=== PATIENT | female | born 1990 | race Caucasian/White ===

== ENCOUNTER 2018-09-12 13:29 | Emergency (ER) | payer SELFPAY ==
--- NOTE | 2018-09-12 16:21 | ER Document Report ---
HPI - HPI Time Seen by Provider: 09/12/18 16:04 Pain Level: Denies Notes: Patient is a 28-year-old female presented to the emergency department chief complaint of possible staph infection. Patient reports she is just got out of penitentiary and she has a few scattered red bumps to her chest, arms and face. Patient reports every time she gets out of correction or penitentiary she gets this infection. Patient reports she has taken Bactrim in the past which has cleared the infection without difficulty. Patient denies any nausea, vomiting, diarrhea or fevers. - REPRODUCTIVE Reproductive: DENIES: : Past Medical History - General Information source: Patient - Social History Smoking Status: Current Every Day Smoker Chew tobacco use (# tins/day): No Frequency of alcohol use: None Drug Abuse: Heroin, Methamphetamine Family History: Reviewed & Not Pertinent Patient has suicidal ideation: No Patient has homicidal ideation: No Neurological Medical History: Reports: Hx Migraine Renal/ Medical History: Denies: Hx Peritoneal Dialysis Vertical Provider Document - CONSTITUTIONAL Notes: PHYSICAL EXAMINATION: GENERAL: Well-appearing, well-nourished and in no acute distress. HEAD: Atraumatic, normocephalic. EYES: Pupils equal round extraocular movements intact, conjunctiva are normal. ENT: Nares patent NECK: Normal range of motion LUNGS: No respiratory distress Musculoskeletal: Normal range of motion NEUROLOGICAL: Normal speech, normal gait. PSYCH: Normal mood, normal affect. SKIN: Scattered sores on skin consistent with staph or MRSA. - INFECTION CONTROL TRAVEL OUTSIDE OF THE [place] IN LAST 30 DAYS: No Course - Re-evaluation Re-evalutation: Patient will be started on Bactrim. Patient encouraged to shower twice daily with antibacterial soap. Patient's significant other also has similar symptoms, encouraged him to also do the same so that they would not to cross contaminate the infection. ED return precautions were discussed and patient verbalized understanding and agreement with same. Discharge - Discharge Clinical Impression: Skin infection Condition: Stable Disposition: HOME, SELF-CARE Additional Instructions: Please take medication as prescribed. Shot were at least twice daily with a good antibacterial soap. Return to the emergency department with any new or worsening symptoms. Prescriptions: Sulfamethoxazole/Trimethoprim [Bactrim Ds Tablet] 1 tab PO BID #14 tablet
[2018-09-12 16:39] VITALS: BP 105/65
== END 2018-09-12 16:39 | disposition home or self-care (01) ==
LOC: ER 13:29
DX: L08.9 Local infection of the skin and subcutaneous tissue, unspecified (principal); F15.10 Other stimulant abuse, uncomplicated; F11.10 Opioid abuse, uncomplicated; F17.200 Nicotine dependence, unspecified, uncomplicated
CPT/HCPCS: 99283

== ENCOUNTER 2019-05-11 10:05 | Inpatient (IN) | payer MEDICAID ==
[2019-05-11 11:41] LABS: APPEARANCE,URINE SLIGHTLY-CLOUDY; BACTERIA (WET MOUNT) 4+ BACTERIA SEEN; BILIRUBIN,URINE NEGATIVE (NEGATIVE); COLOR,URINE YELLOW; EPITHELIALS (WET MOUNT) 3+ EPITHELIALS SEEN; GLUCOSE, URINE NEGATIVE (NEGATIVE); KETONES,URINE NEGATIVE (NEGATIVE); LEUKOCYTE ESTERASE,URINE LARGE (NEGATIVE); NITRITE,URINE NEGATIVE (NEGATIVE); PROTEIN,URINE 30 mg/dL (NEGATIVE); RBCS (WET MOUNT) 2+ RBCS SEEN; T.VAGINALIS (WET MOUNT) NO TRICHOMONAS SEEN; URINE SPECIFIC GRAVITY 1.015; WBCS (WET MOUNT) 4+ WBCS SEEN; YEAST (WET MOUNT) NO YEAST SEEN
[2019-05-11] MEDS: RINGERS SOLUTION,LACTATED 1,000 ML IV PRN ×2 (11:45→23:54)
[2019-05-11 11:55] LABS: URINE BARBITURATES SCREEN NEGATIVE; URINE BENZODIAZEPINES SCREEN NEGATIVE; URINE COCAINE SCREEN NEGATIVE; URINE MARIJUANA (THC) SCREEN NEGATIVE; URINE METHADONE SCREEN NEGATIVE; URINE PHENCYCLIDINE SCREEN NEGATIVE
[2019-05-11] MEDS ORDERED: PENICILLIN G-K 5 MILLION UNIT VIAL ONE (11:55)
--- NOTE | 2019-05-11 11:59 | RADIOLOGY REPORT (SQ) ---
EXAM DESCRIPTION: U/S OB LIMITED COMPLETED DATE/TIME: 05/11/2019 11:19 am REASON FOR STUDY: complete ob COMPARISON: None. TECHNIQUE: Limited transabdominal grayscale ultrasound for evaluation of specific requested obstetri anum parameters. LIMITATIONS: None. FINDINGS: CERVICAL LENGTH: 2.9 cm Closed. AJ: 10.1 cm. FHR: 126 beats per minute. PRESENTATION: Breech. PLACENTA: Placental [place]. ANATOMY: No abnormality. OTHER: Estimated gestational age 34 weeks 5 days IMPRESSION: LIMITED OBSTETRICAL ULTRASOUND WITH MEASURED PARAMETERS DELINEATED ABOVE. Trimester of : Third trimester - 28 weeks to delivery. TECHNICAL DOCUMENTATION: JOB ID: [id number] 2010 [employer]- All Rights Reserved Reading location - IP/workstation name: [email or web address]
[2019-05-11 12:00] LABS: URINE AMPHETAMINES SCREEN UNCONFIRMED POSITIVE
[2019-05-11] MEDS ORDERED: PENICILLIN G POTASSIUM 5,000,000 UNIT in DEXTROSE 5%-WATER 100 ML IV ONE (12:00)
[2019-05-11] MEDS ORDERED: CEFAZOLIN 1 GM/D5W RTU 1 GM/50 ML RTUPB IV ONE (12:08)
[2019-05-11] MEDS ORDERED: CITRIC ACID/SODIUM CITRATE ORAL SOLN 15 ML UDCUP ONE (12:08)
[2019-05-11 12:10] LABS: ABSOLUTE BASOPHILS # (AUTO) 0.2 10^3/uL (0.0-0.2); ABSOLUTE EOSINOPHILS # (AUTO) 0.1 10^3/uL (0.0-0.6); ABSOLUTE LYMPHOCYTES (AUTO) 1.8 10^3/uL (0.5-4.7); ABSOLUTE MONOCYTES (AUTO) 0.9 10^3/uL (0.1-1.4); ABSOLUTE NEUT (AUTO) 12.5 10^3/uL (1.7-8.2); EOSINOPHILS % (AUTO) 0.4 % (0-6); HEMATOCRIT 33.8 % (36.0-47.0); HEMOGLOBIN 11.5 g/dL (12.0-15.5); LYMPHOCYTES % (AUTO) 11.4 % (13-45); MEAN CORPUSCULAR HEMOGLOBIN 29.2 pg (27.0-33.4); MEAN CORPUSCULAR VOLUME 86 fl (80-97); MONOCYTES % (AUTO) 5.8 % (3-13); PLATELET COUNT 381 10^3/uL (150-450); RED BLOOD COUNT 3.94 10^6/uL (3.72-5.28); RED CELL DISTRIBUTION WIDTH 13.5 % (11.5-14.0); SEGMENTED NEUTROPHILS % (AUTO) 81.4 % (42-78); TOTAL CELLS COUNTED % (AUTO) 100 %; WHITE BLOOD COUNT 15.3 10^3/uL (4.0-10.5)
--- NOTE | 2019-05-11 12:26 | Admission Physical ---
Datetime Report Generated by CPN: 05/11/2019 12:25 CURRENT ADMISSION Chief Complaint: Uterine Contractions Indication for Induction: Not Applicable Admit Impression : , Intrauterine Admit Plan: Admit to Unit; Initiate Section Protocol ALLERGIES Medication Allergies: prochlorperazine (05/11/2019); diphenhydramine (05/11/2019) OBSTETRICAL HISTORY EDC: 06/17/2019 00:00 : 5 PHYSICAL EXAM General: Normal HEENT: Normal Neurologic: Normal Thyroid: Normal Heart: Normal Lungs: Normal Breast: Deferred Back: Normal Abdomen: Normal Genitourinary Exam: Normal Extremities: Normal DTRs: Normal Pelvic Type: Adequate Vital Signs: Reviewed VAGINAL EXAM Dilatation: 4 Effacement: 90 Station: -2 MEMBRANES Pooling: Positive Membranes: Ruptured FETUS A EGA: 34.5 Monitoring: External US FHR- Baseline: 130 Variability: Minimal - Undetectable to <=5bpm Decelerations: None Presentation: Breech Admit Comment: Will go ahead with c section INFORMED CONSENT Signature: with User ID: [email or web address]
[2019-05-11] MEDS ORDERED: DIPH/PERTUSS(ACELL)/TETANUS VAC/PF 0.5 ML SYR (>=10YO) IM PRN (12:28)
[2019-05-11] MEDS ORDERED: SIMETHICONE 80 MG TAB.CHEW PO PRN (12:28)
[2019-05-11] MEDS ORDERED: OXYCODONE-ACETAMINOPHEN 5-325 MG TABLET PO PRN (12:28)
[2019-05-11] MEDS ORDERED: HYDROMORPHONE HCL INJ/PF 2 MG/ML AMPULE IV PRN (12:28)
[2019-05-11] MEDS ORDERED: ACETAMINOPHEN 1,000 MG/100 ML RTUPB IV PRN (12:28)
[2019-05-11] MEDS ORDERED: RINGERS SOLUTION,LACTATED 1,000 ML IV PRN (12:28)
[2019-05-11] MEDS ORDERED: OXYTOCIN/NORMAL SALINE 20 UNIT/1,000 ML RTUINJ IV PRN (12:28)
[2019-05-11] MEDS ORDERED: MEASLES,MUMPS&RUBELLA VACC/PF 0.5 ML VIAL SUBCUT PRN (12:28)
[2019-05-11] MEDS ORDERED: ACETAMINOPHEN 325 MG TABLET PO PRN (12:28)
[2019-05-11] MEDS ORDERED: PROMETHAZINE HCL INJ 25 MG/1 ML VIAL IV PRN (12:28)
[2019-05-11] MEDS ORDERED: PHENYLEPHRINE HCL INJ/PF 10 MG/1 ML SDV ONE (12:31)
[2019-05-11] MEDS ORDERED: KETOROLAC TROMETHAMINE INJ/PF 30 MG/1 ML SDV ONE (12:31)
[2019-05-11] MEDS ORDERED: OXYTOCIN 10 UNIT/ML VIAL ONE (12:31)
[2019-05-11] MEDS ORDERED: ONDANSETRON HCL INJ/PF 4 MG/2 ML SDV ONE (12:32)
[2019-05-11] MEDS ORDERED: OXYTOCIN/NORMAL SALINE 20 UNIT/1,000 ML RTUINJ ONE (12:32)
[2019-05-11] MEDS ORDERED: MIDAZOLAM 2 MG/2 ML INJ ONE (12:32)
[2019-05-11] MEDS ORDERED: EPHEDRINE SULFATE INJ 50 MG/1 ML AMPULE ONE (12:32)
[2019-05-11] MEDS ORDERED: FENTANYL CITRATE INJ/PF 100 MCG/2 ML AMPUL ONE (12:32)
[2019-05-11 13:06] LABS: CHLAM PCR NOT DETECTED (NOT DETECT)
[2019-05-11] MEDS ORDERED: CEFTRIAXONE INJ 1000 MG VIAL ONE (13:12)
--- NOTE | 2019-05-11 15:27 | Operative Report ---
Operative Report DATE OF SURGERY: 05/11/19 PREOPERATIVE DIAGNOSIS: Low transverse for breech and tubal ligation with Filshie clips POSTOPERATIVE DIAGNOSIS: Same OPERATION: Primary via low transverse uterine incision and tubal ligation with bilateral Filshie clip placement SURGEON: DEV BARNES ANESTHESIA: Spinal TISSUE REMOVED OR ALTERED: Placenta COMPLICATIONS: None ESTIMATED BLOOD LOSS: 250 cc INTRAOPERATIVE FINDINGS: Normal uterus tubes ovaries and viable infant in a breech position PROCEDURE: Patient was taken to the OR and placed in supine position after her spinal anesthesia. She is prepared and draped in sterile fashion. Marks was placed for drainage of the bladder. Low transverse incision was made and carried down the level of the fascia. The fascial incision was made with knife and extended bilaterally with curved Sanchez scissors. The fascia was off the rectus muscles using sharp and blunt dissection. The rectus muscles are in the midline. The peritoneum was entered without incident. Bladder blade was placed in uterine segment was identified. A low transverse incision was made creating a bladder flap. Bladder blade was placed low transverse uterine incision was made with the knife and extended with fingertips. The baby was delivered with some fundal pressure in a breech fashion. The position was double footling breech. Mouth and nose were suctioned free. The cord is doubly clamped and cut. Baby is passed off to the pulverizer in attendance. The placenta was manually extracted with trailing membranes. The uterus was externalized wrapped in a moist lap sponge. Uterine contents wiped free. Uterus was closed with a running locking layer of 0 chromic suture using the second layer to imbricate the first completing a double layer closure of the uterus. A Filshie clip was placed across the mid isthmic portion of each fallopian tube. The serosa was closed with a running 2-0 chromic stitch. The pelvis was irrigated and suctioned free of fluid the uterus was replaced in the abdomen. The abdominal wall peritoneum was closed with running 2-0 chromic stitch. Fascia was closed with a running 0 Vicryl in 2 segments. Cheko's layer was brought together with 0 plain gut stitch and the skin was closed with running subcuticular 4-0 undyed Vicryl stitch. The wound was dressed mother and baby did well.
[2019-05-11] MEDS ORDERED: MORPHINE SULFATE 10 MG/ML INJ ONE (15:53)
[2019-05-11] MEDS ORDERED: PENICILLIN G POTASSIUM 2,500,000 UNIT in DEXTROSE 5%-WATER 50 ML IV SCH (16:00)
[2019-05-11] MEDS: OXYCODONE-ACETAMINOPHEN 5-325 MG TABLET PO PRN (18:51)
[2019-05-11] MEDS: DOCUSATE SODIUM 100 MG CAPSULE PO SCH (18:53)
[2019-05-11] MEDS: KETOROLAC TROMETHAMINE INJ/PF 30 MG/1 ML SDV IV SCH (22:01)
[2019-05-12] MEDS: KETOROLAC TROMETHAMINE INJ/PF 30 MG/1 ML SDV IV SCH ×2 (06:36→13:21)
[2019-05-12 07:24] LABS: HEMATOCRIT 26.1 % (36.0-47.0); MEAN CORPUSCULAR HEMOGLOBIN 30.2 pg (27.0-33.4); MEAN CORPUSCULAR HGB CONC 35.8 g/dL (32.0-36.0); MEAN CORPUSCULAR VOLUME 84 fl (80-97); PLATELET COUNT 297 10^3/uL (150-450); RED CELL DISTRIBUTION WIDTH 13.3 % (11.5-14.0); WHITE BLOOD COUNT 12.4 10^3/uL (4.0-10.5)
[2019-05-12 07:29] LABS: HEMOGLOBIN 9.4 g/dL (12.0-15.5)
[2019-05-12] MEDS: OXYCODONE-ACETAMINOPHEN 5-325 MG TABLET PO PRN ×3 (08:11→20:30)
[2019-05-12] MEDS: PRENATAL VITAMIN W DHA CAPSULE PO SCH (09:37)
[2019-05-12] MEDS: DOCUSATE SODIUM 100 MG CAPSULE PO SCH ×2 (09:37→17:26)
--- NOTE | 2019-05-12 14:42 | PDOC PROGRESS REPORT ---
Subjective-OB Progress Note for:: 05/12/19 Subjective: reports bleeding slowing, pain controlled with current meds. denies needs Physical Exam (OB) Vital Signs: Temp Pulse Resp BP Pulse Ox 97.8 F 65 16 112/56 L 100 05/12/19 11:24 05/12/19 11:24 05/12/19 11:24 05/12/19 11:24 05/12/19 11:24 Intake & Output 05/11/19 05/12/19 05/13/19 06:59 06:59 06:59 Intake Total 2090 300 Output Total 3200 500 Balance -1110 -200 Weight 60.9 kg - Dressing Removed: No Incision: Dressing Closure Type: Opsite - Bilateral Tubal Ligation Dressing Removed: No Site: Dressing - Abdomen Description: Tender, Soft Hernia Present: No Fundal Description: Firm, Midline Fundal Height: u/u - u/2 - Extremities Lower extremities: Rainer's sign - neg Calf: Normal, Nontender Objective-Diagnostic Laboratory: 05/12/19 07:01 05/12/19 07:01 WBC 12.4 H RBC 3.10 L Hgb 9.4 L D Hct 26.1 L MCV 84 MCH 30.2 MCHC 35.8 RDW 13.3 Plt Count 297 05/11/19 11:21 Vaginal/Anorectal Group B Streptococcus Culture - Final GROUP B BETA HEMOLYTIC STREPTOCOCCUS RECOVERED Assessment and Plan(PN) - Assessment and Plan (1) premature rupture of membranes (PPROM) delivered, current hospitalization Is this a current diagnosis for this admission?: Yes (2) Breech extraction, delivered Is this a current diagnosis for this admission?: Yes (3) Status post repeat low transverse section Is this a current diagnosis for this admission?: Yes - Time Spent with Patient Time with patient: Less than 15 minutes Medications reviewed and adjusted accordingly: Yes - Disposition Anticipated Discharge: Home Within: within 24 hours
[2019-05-12] MEDS: IBUPROFEN 800 MG TABLET PO SCH (21:57)
[2019-05-13] MEDS: IBUPROFEN 800 MG TABLET PO SCH ×4 (03:27→20:42)
[2019-05-13] MEDS: OXYCODONE-ACETAMINOPHEN 5-325 MG TABLET PO PRN ×4 (05:20→20:44)
[2019-05-13 08:38] LABS: HEPATITIS C VIRUS AB >11.0 s/co ratio (0.0-0.9); HEPATITS B SURFACE ANTIGEN Negative (Negative)
[2019-05-13] MEDS ORDERED: CEFTRIAXONE INJ 500 MG VIAL IV ONE (10:07)
[2019-05-13] MEDS: PRENATAL VITAMIN W DHA CAPSULE PO SCH (10:13)
[2019-05-13] MEDS: DOCUSATE SODIUM 100 MG CAPSULE PO SCH ×2 (10:13→17:51)
[2019-05-13] MEDS ORDERED: CEFTRIAXONE SODIUM 500 MG in NORMAL SALINE 25 ML IV ONE (11:30)
[2019-05-13] MEDS ORDERED: AZITHROMYCIN 1 GM SUSP PACKET PO ONE (11:30)
--- NOTE | 2019-05-13 11:35 | PDOC PROGRESS REPORT ---
Subjective-OB Progress Note for:: 05/13/19 - POD #2, s/p delivery for breech presentation. BTl done. No PNC. Hx Heroin abuse, +Hep C, +GC on admission. Baby in the NICU, pt is bottle feeding, Electronic Prepress Operator ordered. Physical Exam (OB) Vital Signs: Temp Pulse Resp BP Pulse Ox 98.1 F 71 22 H 108/56 L 100 05/13/19 08:00 05/13/19 08:00 05/13/19 08:00 05/13/19 08:00 05/13/19 08:00 Intake & Output 05/12/19 05/13/19 05/14/19 06:59 06:59 06:59 Intake Total 2090 1600 Output Total 3200 2750 Balance -1110 -1150 Weight 60.9 kg - General General Appearance: Appears well, Sleeping/easily aroused In distress: None - PIH/Pre-Eclampsia Clonus: Negative Headache: Absent Epigastric Pain: No Visual Changes: No - Dressing Removed: No Incision: Dressing, Well Approximated Closure Type: Opsite - Bilateral Tubal Ligation Dressing Removed: No Site: Dressing - Lochia Lochia Amount: Scant < 10 ml Lochia Color: Rubra/Red - Abdomen Description: Tender Hernia Present: No Fundal Description: Firm, Midline Fundal Height: u/u - u/2 - Respiratory Respiratory Status: No respiratory distress - Abdominal Distension: No distension Tenderness: Nontender - Genitourinary Genitourinary Note: voiding - Extremities Upper extremity: Normal inspection Lower extremities: Normal inspection - Skin Skin Temperature: Warm Skin Moisture: Dry Objective-Diagnostic Laboratory: 05/12/19 07:01 05/11/19 11:21 Vaginal/Anorectal Group B Streptococcus Culture - Final GROUP B BETA HEMOLYTIC STREPTOCOCCUS RECOVERED Assessment and Plan(PN) - Assessment and Plan (1) Tubal ligation status Is this a current diagnosis for this admission?: Yes (2) Breech extraction, delivered Is this a current diagnosis for this admission?: Yes (3) Gonorrhea complicating childbirth Is this a current diagnosis for this admission?: Yes (4) premature rupture of membranes (PPROM) delivered, current hospitalization Is this a current diagnosis for this admission?: Yes (5) Status post repeat low transverse section Is this a current diagnosis for this admission?: Yes Plan:: Ambulation encouraged, Routine PP orders, will tx for GC w/ rocephin and azithromycin today. Pt states she is aware of her Hep C status - Time Spent with Patient Time with patient: Less than 15 minutes Medications reviewed and adjusted accordingly: Yes - Disposition Anticipated Discharge: Home Within: within 24 hours
[2019-05-14] MEDS: IBUPROFEN 800 MG TABLET PO SCH ×4 (04:23→14:04)
[2019-05-14] MEDS: DOCUSATE SODIUM 100 MG CAPSULE PO SCH (09:28)
[2019-05-14] MEDS: PRENATAL VITAMIN W DHA CAPSULE PO SCH (09:28)
[2019-05-14] MEDS: OXYCODONE-ACETAMINOPHEN 5-325 MG TABLET PO PRN ×2 (09:28→14:04)
[2019-05-14 12:46] VITALS: BP 118/71
--- NOTE | 2019-05-14 14:21 | PDOC DISCHARGE SUMMARY ---
Impression - Admit/DC Date/PCP Admission Date/Primary Care Provider: 05/11/19 11:52 Discharge Date: 05/14/19 - needs follow up appt on sunday at [facility] for incision check - Discharge Diagnosis (1) Tubal ligation status Is this a current diagnosis for this admission?: Yes (2) Gonorrhea complicating childbirth Is this a current diagnosis for this admission?: Yes (3) premature rupture of membranes (PPROM) delivered, current hospitalization Is this a current diagnosis for this admission?: Yes (4) Breech extraction, delivered Is this a current diagnosis for this admission?: Yes (5) Status post primary low transverse section Is this a current diagnosis for this admission?: Yes (6) Hepatitis C carrier Is this a current diagnosis for this admission?: Yes (7) Drug use affecting Is this a current diagnosis for this admission?: Yes (8) No care in current Is this a current diagnosis for this admission?: Yes - Additional Information Resuscitation Status: Full Code Discharge Diet: As Tolerated, Regular Discharge Activity: Activity As Tolerated, Balance Activity w/Rest, No Driving, No Lifting Over 10 Pounds, Pelvic Rest, Slowly Increase Activity, No tub bath, Walk Frequently Prescriptions: Oxycodone HCl/Acetaminophen [Percocet 5-325 mg Tablet] 2 tab PO Q4HP PRN #20 tablet PRN Reason: For Pain Scale 3-5 Ibuprofen [Motrin 800 mg Tablet] 800 mg PO Q8HP PRN #20 tablet PRN Reason: For Pain Scale 1-3 Docusate Sodium [Colace 100 mg Capsule] 100 mg PO BID #60 capsule Home Medications: No.137/Iron/Folic Acd [ Vitamin Tablet] 1 tab PO DAILY 05/31/13 Docusate Sodium [Colace 100 mg Capsule] 100 mg PO BID #60 capsule 05/14/19 Ibuprofen [Motrin 800 mg Tablet] 800 mg PO Q8HP PRN #20 tablet 05/14/19 Oxycodone HCl/Acetaminophen [Percocet 5-325 mg Tablet] 2 tab PO Q4HP PRN #20 tablet 05/14/19 Results Laboratory Results: WBC 12.4 10^3/uL (4.0-10.5) H 05/12/19 07:01 RBC 3.10 10^6/uL (3.72-5.28) L 05/12/19 07:01 Hgb 9.4 g/dL (12.0-15.5) L D 05/12/19 07:01 Hct 26.1 % (36.0-47.0) L 05/12/19 07:01 MCV 84 fl (80-97) 05/12/19 07:01 MCH 30.2 pg (27.0-33.4) 05/12/19 07:01 MCHC 35.8 g/dL (32.0-36.0) 05/12/19 07:01 RDW 13.3 % (11.5-14.0) 05/12/19 07:01 Plt Count 297 10^3/uL (150-450) 05/12/19 07:01 Lymph % (Auto) 11.4 % (13-45) L 05/11/19 11:35 [place] % (Auto) 5.8 % (3-13) 05/11/19 11:35 Eos % (Auto) 0.4 % (0-6) 05/11/19 11:35 Baso % (Auto) 1.0 % (0-2) 05/11/19 11:35 Absolute Neuts (auto) 12.5 10^3/uL (1.7-8.2) H 05/11/19 11:35 Absolute Lymphs (auto) 1.8 10^3/uL (0.5-4.7) 05/11/19 11:35 Absolute Monos (auto) 0.9 10^3/uL (0.1-1.4) 05/11/19 11:35 Absolute Eos (auto) 0.1 10^3/uL (0.0-0.6) 05/11/19 11:35 Absolute Basos (auto) 0.2 10^3/uL (0.0-0.2) 05/11/19 11:35 Seg Neutrophils % 81.4 % (42-78) H 05/11/19 11:35 Urine Color YELLOW 05/11/19 11:21 Urine Appearance SLIGHTLY-CLOUDY 05/11/19 11:21 Urine pH 7.0 (5.0-9.0) 05/11/19 11:21 Ur Specific [place] 1.015 05/11/19 11:21 Urine Protein 30 mg/dL (NEGATIVE) H 05/11/19 11:21 Urine Glucose (UA) NEGATIVE mg/dL (NEGATIVE) 05/11/19 11:21 Urine Ketones NEGATIVE mg/dL (NEGATIVE) 05/11/19 11:21 Urine Blood MODERATE (NEGATIVE) H 05/11/19 11:21 Urine Nitrite NEGATIVE (NEGATIVE) 05/11/19 11:21 Urine Bilirubin NEGATIVE (NEGATIVE) 05/11/19 11:21 Urine Urobilinogen 4.0 mg/dL (<2.0) H 05/11/19 11:21 Ur Leukocyte Esterase LARGE (NEGATIVE) H 05/11/19 11:21 Urine WBC (Auto) 101 /HPF 05/11/19 11:21 Urine RBC (Auto) 5 /HPF 05/11/19 11:21 Urine Bacteria (Auto) TRACE /HPF 05/11/19 11:21 Squamous Epi Cells Auto 8 /HPF 05/11/19 11:21 Urine Mucus (Auto) OCC /LPF 05/11/19 11:21 Urine Ascorbic Acid NEGATIVE (NEGATIVE) 05/11/19 11:21 Membranes Rupture POSITIVE (NEGATIVE) H 05/11/19 11:21 Epi Cells (Wet Prep) 3+ EPITHELIALS SEEN 05/11/19 11:21 Bacteria (Wet Prep) 4+ BACTERIA SEEN 05/11/19 11:21 Trichomonas (Wet Prep) NO TRICHOMONAS SEEN 05/11/19 11:21 Vaginal WBC 4+ WBCS SEEN 05/11/19 11:21 Vaginal RBC 2+ RBCS SEEN 05/11/19 11:21 Vaginal Yeast NO YEAST SEEN 05/11/19 11:21 Urine Opiates Screen NEGATIVE 05/11/19 11:21 Urine Methadone Screen NEGATIVE 05/11/19 11:21 Ur Barbiturates Screen NEGATIVE 05/11/19 11:21 Ur Phencyclidine Scrn NEGATIVE 05/11/19 11:21 Ur Amphetamines Screen UNCONFIRMED POSITIVE 05/11/19 11:21 U Benzodiazepines Scrn NEGATIVE 05/11/19 11:21 Urine Cocaine Screen NEGATIVE 05/11/19 11:21 U Marijuana (THC) Screen NEGATIVE 05/11/19 11:21 RPR NONREACTIVE (NONREACTIVE) 05/11/19 11:55 Chlamydia DNA (PCR) NOT DETECTED (NOT DETECT) 05/11/19 11:21 Hep Bs Antigen Negative (Negative) 05/11/19 11:55 Hepatitis C (BALDEMAR) >11.0 s/co ratio (0.0-0.9) H 05/11/19 11:55 Hep C Verif Com 2 Comment (.) 05/11/19 11:55 HIV 1&2 Antibody NEGATIVE (NEGATIVE) 05/11/19 11:55 N.gonorrhoeae DNA (PCR) DETECTED (NOT DETECT) H 05/11/19 11:21 Rubella IgG Antibody 6.73 IU/mL 05/11/19 11:55 Rubella IgG Ab Interp NEGATIVE 05/11/19 11:55 Blood Type O POSITIVE 05/11/19 11:35 Antibody Screen NEGATIVE 05/11/19 11:35 Impressions: Obstetrics Ultrasound 05/11/19 00:00 IMPRESSION: LIMITED OBSTETRICAL ULTRASOUND WITH MEASURED PARAMETERS DELINEATED ABOVE. Trimester of : Third trimester - 28 weeks to delivery.
--- NOTE | 2019-05-16 08:37 | Delivery Summary ---
Del Sum A-C Datetime Report Generated by CPN: 05/16/2019 08:37 DELIVERY PERSONNEL DELIVERY PERSONNEL: [id number] Delivery Doctor:: So Salazar MD Anesthesiologist:: Anushka Dawson MD MILK INSPECTOR:: Kofi Han MILK INSPECTOR Labor and Delivery Nurse:: Lalito Forrest RN Hardening Machine Operator Helper:: Lalito Forrest RN Neonatal Nurse Practitioner:: JESE Alfaro Oracle Adf Developer/FAMILY MEDICINE PHYSICIAN: Jennifer Stephens, ST MATERNAL INFORMATION Delivery Anesthesia: Spinal Medications After Delivery: Pitocin Bolus-Please Comment; Pitocin Drip 20 Units/1000ml NSS Delivery QBL: 206 Maternal Complications: None LABOR SUMMARY EDC: 06/17/2019 00:00 No. Babies in Womb: 1 Attempted: No Labor Anesthesia: None LABOR INFORMATION Reason for Induction: Not Applicable Oxytocin: N/A Group B Beta Strep: 1 GROUP B BETA HEMOLYTIC STREPTOCOCCUS RECOVERED Penicillin and ampicillin are drugs of choice for treatment of beta-hemolytic streptococcal infections. Susceptibility testing of penicillins and other beta-lactam agents approved by the FDA for treatment of beta-hemolytic streptococcal infections need not be performed routinely because nonsusceptible isolates are extremely rare in any beta-hemolytic streptococcus and have not been reported for Streptococcus pyogenes (group A). (CLSI) Group B Beta Strep: unknown Antibiotics # of Doses: 1 Antibiotics Time of Last Dose: 1202 Name of Antibiotic Given: peniciliin Steroids Given: None Reason Steroids Not Administered: Imminent Delivery MEMBRANES Membranes Rupture Method: Spontaneous Membranes Rupture Method: Spontaneous Amniotic Fluid Color: Clear Amniotic Fluid Amount: None Amniotic Fluid Odor: None STAGES OF LABOR Stage 3 hr: 0 Stage 3 min: 1 VAGINAL DELIVERY Episiotomy: None Laceration #1: None Laceration Extension #1: N/A Laceration Repair: Not Applicable Sponge Count Correct: N/A Sharps Count Correct: N/A CSECTION DELIVERY Primary Indication: Breech Presentation CSection Urgency: Non-Scheduled CSection Incidence: Primary Labor: Labor Elective: Nonelective CSection Incision: Lower Uterine Transverse Sterilization Procedure: Ring and Clip BABY A INFORMATION Delivery Date/Time: 05/11/2019 13:26 Method of Delivery: Nurse Controlled Delivery: No Born in Route : No : N/A Forceps: N/A Vacuum Extraction: N/A Shoulder Dystocia : No PRESENTATION/POSITION BABY A Presentation: Breech Cephalic Presentation: N/A Breech Presentation: Double Footling PLACENTA INFORMATION BABY A Placenta Delivery Time : 05/11/2019 13:27 Placenta Method of Delivery: Manual Removal Placenta Status: Delivered SCORES BABY A Heart Rate 1 min: >100 bpm Resp Effort 1 min: Good Cry Reflex Irritability 1 min: Cough or Sneeze or Pulls Away Muscle Tone 1 min: Active Motion Color 1 min: Body [place], Extremities Blue Resuscitation Effort 1 min: Tactile Stimulation SCORE 1 MIN: 9 Heart Rate 5 min: >100 bpm Resp Effort 5 min: Good Cry Reflex Irritability 5 min: Cough or Sneeze or Pulls Away Muscle Tone 5 min: Active Motion Color 5 min: Body [place], Extremities Blue Resuscitation Effort 5 min: Tactile Stimulation SCORE 5 MIN: 9 INFANT INFORMATION BABY A Gestational Age at Delivery: 34.5 Gestational Status: Late - 34- 36.6 Weeks Outcome : Liveborn Condition : Stable Sex: Male WEIGHT/LENGTH BABY A Birthweight (gm): 2085 Weight (lb): 4 Weight (oz): 10 Length (in): 17.25 Infant Length (cm): 43.82 CORD INFORMATION BABY A No. Cord Vessels: 3 Nuchal Cord : N/A BABY B INFORMATION : N/A
== END 2019-05-14 14:38 | disposition home or self-care (01) | DRG 783 ==
LOC: EDSTATUS 10:34 → LC 10:36 → LR 11:52 → 2S 16:31
PROVIDERS: ADMIT Obstetrics & Gynecology; ATTEND Obstetrics & Gynecology
PROC: 10D00Z1 Extraction of Products of Conception, Low, Open Approach (ICD-10-PCS; principal; 2019-05-11)
PROC: 0UL70CZ Occlusion of Bilateral Fallopian Tubes with Extraluminal Device, Open Approach (ICD-10-PCS; 2019-05-11)
DX: O32.1XX0 Maternal care for breech presentation, not applicable or unspecified (principal); O60.14X0 Preterm labor third trimester with preterm delivery third trimester, not applicable or unspecified; O98.22 Gonorrhea complicating childbirth; O98.42 Viral hepatitis complicating childbirth; O99.324 Drug use complicating childbirth; O42.913 Preterm premature rupture of membranes, unspecified as to length of time between rupture and onset of labor, third trimester; B19.20 Unspecified viral hepatitis C without hepatic coma; F19.90 Other psychoactive substance use, unspecified, uncomplicated; Z3A.34 34 weeks gestation of pregnancy; Z37.0 Single live birth; Z30.2 Encounter for sterilization
CPT/HCPCS: 1961; 36415; 76815; 80307; 81001; 84112; 85025; 85027; 86592; 86701; 86762; 86803; 86804; 86850; 86900; 86901; 87077; 87081; 87210; 87340; 87491; 87591; 94760; 94799; J0690; J0696; J1885; J2250; J2270; J2370; J2405; J2540; J2590; J3010; J3490; J7050; J7120; Q0144

== ENCOUNTER 2019-09-29 03:10 | Emergency (ER) | payer MEDICAID ==
[2019-09-29 03:40] LABS: APPEARANCE,URINE SLIGHTLY-CLOUDY; BILIRUBIN,URINE NEGATIVE (NEGATIVE); COLOR,URINE YELLOW; GLUCOSE, URINE NEGATIVE (NEGATIVE); KETONES,URINE NEGATIVE (NEGATIVE); LEUKOCYTE ESTERASE,URINE NEGATIVE (NEGATIVE); NITRITE,URINE NEGATIVE (NEGATIVE); PROTEIN,URINE NEGATIVE (NEGATIVE); UROBILINOGEN,URINE NEGATIVE mg/dL (<2.0)
[2019-09-29 03:50] LABS: URINE AMPHETAMINES SCREEN NEGATIVE; URINE BARBITURATES SCREEN NEGATIVE; URINE BENZODIAZEPINES SCREEN NEGATIVE; URINE COCAINE SCREEN NEGATIVE; URINE MARIJUANA (THC) SCREEN NEGATIVE; URINE METHADONE SCREEN NEGATIVE; URINE PHENCYCLIDINE SCREEN NEGATIVE
[2019-09-29] MEDS ORDERED: HALOPERIDOL LACTATE INJ 5 MG/1 ML VIAL IM ONE (04:18)
--- NOTE | 2019-09-29 04:58 | ER Document Report ---
Entered by MIGUEL REILLY SCRIBE 09/29/19 0348 Acting as scribe for:PEREZ SIMENTAL IV, MD ED Substance Abuse / Acc. OD - General Chief Complaint: Drug Abuse Stated Complaint: DRUG WITHDRAWL Time Seen by Provider: 09/29/19 03:46 Mode of Arrival: Medic Information source: Patient, Emergency Med Personnel Notes: This 29 year old female patient with a history of IV heroin use brought in by EMS presents to the ED today with complaints of drug withdrawal. Patient states that she shot up Suboxone around 0000 hours and heroin around 0100 hours. She is requesting assistance with detox. Denies any other complaints. TRAVEL OUTSIDE OF THE [place] IN LAST 30 DAYS: No - Related Data Allergies/Adverse Reactions: diphenhydramine [From Benadryl] Adverse Reaction (Verified 05/11/19 10:26) prochlorperazine [From Compazine] Adverse Reaction (Verified 05/11/19 10:26) Past Medical History - General Information source: Patient - Social History Smoking Status: Current Every Day Smoker Cigarette use (# per day): Yes Chew tobacco use (# tins/day): No Smoking Education Provided: No Drug Abuse: Heroin Family History: Reviewed & Not Pertinent Patient has suicidal ideation: No Patient has homicidal ideation: No Neurological Medical History: Reports: Hx Migraine Past Surgical History: Reports: Hx Section Review of Systems - Review of Systems Constitutional: See HPI, Other - Heroin use EENT: No symptoms reported Cardiovascular: No symptoms reported Respiratory: No symptoms reported Gastrointestinal: No symptoms reported Genitourinary: No symptoms reported Female Genitourinary: No symptoms reported Musculoskeletal: No symptoms reported Skin: No symptoms reported Hematologic/Lymphatic: No symptoms reported Neurological/Psychological: See HPI, Other - withdrawal -: Yes All other systems reviewed and negative Physical Exam - Vital signs Vitals: Temp Pulse BP Pulse Ox 98.3 F 74 120/92 H 99 09/29/19 03:21 09/29/19 03:21 09/29/19 03:21 09/29/19 03:21 - General General appearance: Alert - HEENT Head: Normocephalic, Atraumatic Eyes: Normal Pupils: PERRL - Respiratory Respiratory status: No respiratory distress Chest status: Nontender Breath sounds: Normal Chest palpation: Normal - Cardiovascular Rhythm: Regular Heart sounds: Normal auscultation Murmur: No Friction rub: No Gallop: None auscultated - Abdominal Inspection: Normal Distension: No distension Bowel sounds: Normal Tenderness: Nontender - Abdomen soft Organomegaly: No organomegaly - Back Back: Normal, Nontender - Extremities General upper extremity: Normal inspection General lower extremity: Normal inspection - Neurological Neuro grossly intact: Yes Orientation: AAOx4 [place] Coma Scale Eye Opening: Spontaneous [place] Coma Scale Verbal: Oriented [place] Coma Scale Motor: Obeys Commands [place] Coma Scale Total: 15 - Psychological Associated symptoms: Psychomotor agitation - Excessive amounts of random motor agitation, Other - Histrionic, distractible and able to answer questions - Skin Skin Temperature: Warm Skin Moisture: Dry Skin Color: Normal Course - Vital Signs Vital signs: Temp Pulse Resp BP Pulse Ox 98.3 F 74 120/92 H 99 09/29/19 03:21 09/29/19 03:21 09/29/19 03:21 09/29/19 03:21 - Laboratory Result Diagrams: 09/29/19 04:53 09/29/19 04:53 Laboratory results interpreted by me: 09/29/19 09/29/19 09/29/19 03:20 04:53 04:53 RDW 14.7 H Lymph % (Auto) 11.6 L Seg Neutrophils % 84.8 H Sodium 136.2 L BUN 6 L Creatinine 0.44 L Glucose 121 H Total Protein 8.3 H Urine Blood SMALL H Salicylates < 1.0 L Acetaminophen < 10 L Discharge - Discharge Clinical Impression: Drug abuse Condition: Stable Disposition: OTHER I personally performed the services described in the documentation, reviewed and edited the documentation which was dictated to the scribe in my presence, and it accurately records my words and actions.
[2019-09-29 05:35] LABS: ABSOLUTE LYMPHOCYTES (AUTO) 0.9 10^3/uL (0.5-4.7); ABSOLUTE MONOCYTES (AUTO) 0.2 10^3/uL (0.1-1.4); ABSOLUTE NEUT (AUTO) 6.6 10^3/uL (1.7-8.2); BASOPHILS % (AUTO) 0.3 % (0-2); EOSINOPHILS % (AUTO) 0.1 % (0-6); HEMATOCRIT 39.1 % (36.0-47.0); HEMOGLOBIN 13.2 g/dL (12.0-15.5); LYMPHOCYTES % (AUTO) 11.6 % (13-45); MEAN CORPUSCULAR HEMOGLOBIN 27.9 pg (27.0-33.4); MEAN CORPUSCULAR HGB CONC 33.9 g/dL (32.0-36.0); MEAN CORPUSCULAR VOLUME 82 fl (80-97); MONOCYTES % (AUTO) 3.2 % (3-13); PLATELET COUNT 300 10^3/uL (150-450); RED BLOOD COUNT 4.74 10^6/uL (3.72-5.28); RED CELL DISTRIBUTION WIDTH 14.7 % (11.5-14.0); SEGMENTED NEUTROPHILS % (AUTO) 84.8 % (42-78); TOTAL CELLS COUNTED % (AUTO) 100 %; WHITE BLOOD COUNT 7.8 10^3/uL (4.0-10.5)
[2019-09-29 05:42] LABS: ALBUMIN 4.3 g/dL (3.5-5.0); ALKALINE PHOSPHATASE 95 U/L (38-126); ANION GAP 8 (5-19); ASPARTATE AMINO TRANSFERASE 33 U/L (14-36); BILIRUBIN,TOTAL 1.1 mg/dL (0.2-1.3); BLOOD UREA NITROGEN 6 mg/dL (7-20); CALCIUM 9.4 mg/dL (8.4-10.2); CARBON DIOXIDE 22 mmol/L (22-30); CHLORIDE 106 mmol/L (98-107); GLUCOSE 121 mg/dL (75-110); POTASSIUM 3.8 mmol/L (3.6-5.0); TOTAL PROTEIN 8.3 g/dL (6.3-8.2)
[2019-09-29 05:43] LABS: ACETAMINOPHEN < 10 ug/mL (10-30); ALCOHOL < 10 mg/dL (NONE DETECTED); SALICYLATE < 1.0 mg/dL (2.0-20.0)
[2019-09-29] MEDS ORDERED: ZIPRASIDONE MESYLATE INJ/PF 20 MG SDV IM ONE (05:50)
--- NOTE | 2019-09-29 06:21 | EKG REPORT ---
SEVERITY:- BORDERLINE ECG - SINUS RHYTHM PROBABLE LEFT ATRIAL ABNORMALITY : Confirmed by: Alvarado Hernández MD 29-Sep-2019 06:20:31
[2019-09-29] MEDS ORDERED: LORAZEPAM INJ 2 MG/1 ML VIAL IM ONE (07:30)
[2019-09-29] MEDS: HALOPERIDOL 5 MG TABLET PO SCH ×2 (11:15→18:02)
[2019-09-29] MEDS: BENZTROPINE MESYLATE 1 MG TABLET PO SCH (11:15)
--- NOTE | 2019-09-29 11:37 | PSYCHOLOGICAL NOTE ---
Psych Note - Psych Note Date seen by psych provider: 09/29/19 Time seen by psych provider: 10:20 Psych Note: Patient refused to engage with clinician. Patient makes no eye contact or any noticeable gesture she is aware of clinician in the room. Medication recommendations per [facility]'s contracted psychiatrist Dr. Yisel VALLEJO are as follows Haldol 5 mg twice daily Cogentin 1 mg daily Impression/Plan: Behavior health team was requested to visit with the patient as she is currently experiencing withdrawal from heroin. Medication recommendations have been provided. Please notify the behavioral health team once patient is willing to engage. If patient wants to AMA or refuses engage in behavioral health services, she is free to follow her own plan of care; the behavioral health team is willing to work support the patient if she would like further assistance with detox.
--- NOTE | 2019-09-29 17:34 | ER Document Report ---
Doctor's Note Notes: 09/29/19 17:33 Aircraft Manager went to evaluate the patient. She will open her eyes when you speak her name. However she is refusing to speak to the provider. Does not appear to be in any acute distress.
[2019-09-30] MEDS: HALOPERIDOL 5 MG TABLET PO SCH (10:52)
[2019-09-30] MEDS: BENZTROPINE MESYLATE 1 MG TABLET PO SCH (10:52)
--- NOTE | 2019-09-30 13:38 | ER Document Report ---
Doctor's Note Notes: 09/30/19 13:34 Patient is resting comfortably she is easily arousable. Alert and oriented x3. Answers questions appropriately. No distress noted. Offers no complaints. Patient is stable for discharge. States she will call someone to come pick her up. 09/30/19 13:52 Discharge - Discharge Clinical Impression: Drug abuse Condition: Stable Disposition: HOME, SELF-CARE Instructions: Instructions for Home Care Following a Drug Overdose ([facility]), Narcotic Abuse ([facility]) Additional Instructions: Outpatient detox for your substance abuse. Return for any new or worsening symptoms.
[2019-09-30 14:25] VITALS: BP 104/54
== END 2019-09-30 14:35 | disposition home or self-care (01) ==
LOC: ER 03:10
DX: F19.10 Other psychoactive substance abuse, uncomplicated (principal); Z79.899 Other long term (current) drug therapy; Z88.8 Allergy status to other drugs, medicaments and biological substances; F17.210 Nicotine dependence, cigarettes, uncomplicated
CPT/HCPCS: 93005; 99285; 96372; 36415; 80307 ×4; 85025; 80053; 81001; 93010; J3490 ×4; J1630; J2060; J3486